=== PATIENT | male | born 1970 | race Caucasian/White ===

== ENCOUNTER → 2021-08-15 | Day surgery (SDC) | payer OTHER ==
[~2021-08-15] VITALS: Ht 172.7 cm; Wt 75.1 kg
[~2021-08-15] MED LIST: ASPIRIN CHEWABL81 MG PO; BACLOFEN 10MG T10 MG PO; CARVEDILOL 25MG25 MG PO; LIPITOR40 MG PO; NAPROXEN500 MG PO; ONE-A-DAY MEN'1 EAC3 PO; ROBINUL FORTE 2M2 MG PO; TOPROL XL 25MG25 MG PO; TRAMADOL HCL50 MG PO; ZESTRIL2.5 MG PO; ZOFRAN ODT4 MG PO/SL
[2021-08-15 09:04] LABS: HCT 45.9 % (42.0-52.0); HGB 15.8 g/dl (13.2-18.0); MCH 29.9 pg (25.0-31.0); MCHC 34.4 g/dL (32.0-36.0); MCV 86.8 fL (78.0-100.0); MPV 8.3 fL (6.0-9.5); RBC 5.29 M/uL (4.70-6.00); WBC 10.6 K/uL (4.0-10.5)
[2021-08-15 09:29] LABS: ALBUMIN 3.9 g/dL (3.4-5.0); BILIRUBIN - TOTAL 2.4 mg/dL (0.2-1.0); BUN/CREAT RATIO (CALC) 19.3 RATIO; CREATININE 0.83 mg/dL (0.67-1.17); GLOBULIN (CALCULATION) 3.9 g/dL; POTASSIUM 3.8 mmol/L (3.5-5.1); TOTAL PROTEIN 7.8 g/dL (6.4-8.2)
== END | disposition home or self-care (01) ==
LOC: FAS 08:15
PROVIDERS: Surgery
DX: K92.1 Melena (principal); R19.7 Diarrhea, unspecified; I25.2 Old myocardial infarction; F17.210 Nicotine dependence, cigarettes, uncomplicated; Z79.82 Long term (current) use of aspirin
CPT/HCPCS: 36415; 80053; J2250; J2704; J7120

== ENCOUNTER → 2022-01-17 | Day surgery (SDC) | payer OTHER ==
[~2022-01-17] VITALS: Ht 172.7 cm; Wt 75.1 kg
[~2022-01-17] MED LIST changes: +PREDNISONE 20MG20 MG PO
[2022-01-17 07:04] LABS: HCT 42.7 % (42.0-52.0); HGB 14.4 g/dl (13.2-18.0); MCH 30.7 pg (25.0-31.0); MCHC 33.7 g/dL (32.0-36.0); MPV 8.6 fL (6.0-9.5); RBC 4.69 M/uL (4.70-6.00)
[2022-01-17 07:23] LABS: ALBUMIN 3.7 g/dL (3.4-5.0); BILIRUBIN - TOTAL 1.7 mg/dL (0.2-1.0); BUN/CREAT RATIO (CALC) 15.4 RATIO; CREATININE 0.78 mg/dL (0.67-1.17); GLOBULIN (CALCULATION) 3.1 g/dL; POTASSIUM 3.9 mmol/L (3.5-5.1); TOTAL PROTEIN 6.8 g/dL (6.4-8.2)
== END | disposition home or self-care (01) ==
LOC: FAS 06:11
PROVIDERS: Orthopaedic Surgery
DX: M75.122 Complete rotator cuff tear or rupture of left shoulder, not specified as traumatic (principal); M75.52 Bursitis of left shoulder; M75.42 Impingement syndrome of left shoulder; M19.012 Primary osteoarthritis, left shoulder; E78.5 Hyperlipidemia, unspecified; I10 Essential (primary) hypertension; I25.2 Old myocardial infarction; Z95.5 Presence of coronary angioplasty implant and graft; Z79.82 Long term (current) use of aspirin; Z79.899 Other long term (current) drug therapy
CPT/HCPCS: 36415; 71045; 80053; 93005; J0171; J0690; J1100; J1885; J2250; J2405; J2704; J2795; J3010; J7120